=== PATIENT | male | born 1955 | race African-American/Black ===

== ENCOUNTER 2016-11-28 06:45 | Emergency (ER) | payer OTHER, MEDICAID ==
[~2016-11-28] VITALS: Ht 175.3 cm; Wt 68.9 kg
[~2016-11-28 06:45] MED LIST: ACETTAB85; ASPI81CH43; CAPT12.533; CARI350T21; Cilostazol PO; LEVO-28 PO; METO25TA62; NOR10T PO; PRAVASTATIN
[2016-11-28 07:56] LABS: Basophils # (auto) 0 uL; Basophils % (auto) 0.5 % (0.0-2.0); Eosinophils # (auto) 0.2 uL; Eosinophils % (auto) 2.8 % (0.0-7.0); Hematocrit 38.5 % (41.0-53.0); Hemoglobin 13.1 g/dL (13.5-17.5); Lymphocytes # (auto) 1.9 uL; Lymphocytes % (auto) 23.3 % (10.0-50.0); Mean Corpuscular Hemoglobin 29.6 pg (28.0-32.0); Mean Platelet Volume 8.9 fL (7.4-10.4); Monocytes # (auto) 0.7 uL; Monocytes % (auto) 8.2 % (0.0-12.0); Neutrophils # (auto) 5.4 uL; Neutrophils % (auto) 65.2 % (37.0-80.0); Platelet Count (auto) 234 10^3/uL (140-450); Red Cell Distribution Width 15.5 % (11.6-16.0); SUSPECT VIEW TRANSMISSION; White Blood Cell 8.3 10^3/uL (4.4-10.8)
[2016-11-28 08:14] LABS: Albumin 3.7 g/dL (3.4-5.0); Alkaline Phosphatase 89 U/L (45-117); Anion Gap 11 (5-15); Aspartate Aminotransferase 14 U/L (15-37); BUN/Creatinine Ratio 11.6; Bilirubin, Total 0.4 mg/dL (0.2-1.0); Blood Urea Nitrogen 11 mg/dL (7-18); Calcium 9.2 mg/dL (8.5-10.1); Carbon Dioxide 23 mmol/L (21-32); Chloride 109 mmol/L (98-107); GFR African American 103 mL/min; GFR Non-African American 85 mL/min; Glucose 106 mg/dL (74-106); Magnesium 1.9 mg/dL (1.6-2.6); Potassium 3.8 mmol/L (3.5-5.1); Sodium 143 mmol/L (136-145); Total Protein 7.6 g/dL (6.4-8.2)
[2016-11-28 08:20] LABS: Temperature: 21.6 C (20.0-25.0)
[2016-11-28 08:29] LABS: INR 1.08 (0.9-1.15); Partial Thromboplastin Time 28.2 sec (22.64-33.71); Prothrombin Time 11.1 sec (9.37-12.3)
[2016-11-28] MEDS ORDERED: cloNIDine HCL 0.1 MG TAB PO ONE (09:00)
[2016-11-28] MEDS ORDERED: METOPROLOL SUCCINATE XL 50 MG TAB PO ONE (09:00)
[2016-11-28 09:50] VITALS: BP 129/92
== END 2016-11-28 10:13 | disposition home or self-care (01) ==
LOC: ER 07:04
DX: I25.810 Atherosclerosis of coronary artery bypass graft(s) without angina pectoris (principal); I11.0 Hypertensive heart disease with heart failure; I50.9 Heart failure, unspecified; E78.5 Hyperlipidemia, unspecified; I48.91 Unspecified atrial fibrillation; Z89.611 Acquired absence of right leg above knee; Z86.73 Personal history of transient ischemic attack (TIA), and cerebral infarction without residual deficits; I25.2 Old myocardial infarction; F17.210 Nicotine dependence, cigarettes, uncomplicated; Z88.0 Allergy status to penicillin; Z79.82 Long term (current) use of aspirin; Z79.899 Other long term (current) drug therapy
CPT/HCPCS: 36415; 71010; 80053; 83735; 83880; 84484; 85025; 85610; 85730; 93005

== ENCOUNTER 2021-01-29 09:38 | Emergency (ER) | payer OTHER, MEDICAID ==
[~2021-01-29] VITALS: Ht 157.5 cm; Wt 68.0 kg
[~2021-01-29 09:38] MED LIST changes: +ACET-1603; -ACETTAB85; +CAPT12.52; -CAPT12.533; -CARI350T21; +CARI350T22; -METO25TA62; +METO25TA93
[2021-01-29 10:30] LABS: Basophils # (auto) 0 10 ^3/uL (0-0.2); Basophils % (auto) 0.6 % (0.0-2.0); Eosinophils # (auto) 0 10 ^3/uL (0-0.8); Eosinophils % (auto) 0.3 % (0.0-7.0); Hematocrit 43.8 % (41.0-53.0); Hemoglobin 14.8 g/dL (13.5-17.5); Lymphocytes % (auto) 16.4 % (10.0-50.0); Mean Corpuscular Hemoglobin 29.9 pg (28.0-32.0); Mean Corpuscular Hgb Conc. 33.8 g/dL (32.0-36.0); Mean Corpuscular Volume 88.5 fL (80.0-100.0); Monocytes # (auto) 0.3 10 ^3/uL (0-1.3); Monocytes % (auto) 5.8 % (0.0-12.0); Neutrophils # (auto) 4.6 10 ^3/uL (1.6-8.6); Neutrophils % (auto) 76.9 % (37.0-80.0); Nucleated Red Blood Cells % 0.1 %; Platelet Count (auto) 202 10^3/uL (140-450); Red Blood Cells 4.95 10^6/uL (4.5-5.90); Red Cell Distribution Width 15.3 % (11.8-14.3)
[2021-01-29 10:48] LABS: Albumin 3.5 g/dL (3.4-5.0); Amylase 43 U/L (25-115); Anion Gap 13 (5-15); Blood Urea Nitrogen 11 mg/dL (7-18); Carbon Dioxide 20 mmol/L (21-32); Chloride 108 mmol/L (98-107); Glucose 116 mg/dL (74-106); Lipase 35 U/L (73-393); Potassium 3.8 mmol/L (3.5-5.1); Sodium 141 mmol/L (136-145)
[2021-01-29 10:54] LABS: Alanine Aminotransferase 28 U/L (16-61); Alkaline Phosphatase 88 U/L (45-117); Aspartate Aminotransferase 49 U/L (15-37); BUN/Creatinine Ratio 10.4; Bilirubin, Total 0.4 mg/dL (0.2-1.0); GFR African American 90 mL/min; GFR Non-African American 74 mL/min; Total Protein 7.4 g/dL (6.4-8.2)
[2021-01-29] MEDS ORDERED: cloNIDine HCL 0.1 MG TAB PO ONE (12:00)
[2021-01-29 12:22] VITALS: BP 178/98
== END 2021-01-29 12:36 | disposition home or self-care (01) ==
LOC: ER 09:38 → EDBD 09:38 → ER 12:36
DX: R10.84 Generalized abdominal pain (principal); I16.0 Hypertensive urgency; I13.0 Hypertensive heart and chronic kidney disease with heart failure and stage 1 through stage 4 chronic kidney disease, or unspecified chronic kidney disease; N18.9 Chronic kidney disease, unspecified; I50.9 Heart failure, unspecified; E78.5 Hyperlipidemia, unspecified; I25.2 Old myocardial infarction; Z86.73 Personal history of transient ischemic attack (TIA), and cerebral infarction without residual deficits; Z87.891 Personal history of nicotine dependence; Z88.0 Allergy status to penicillin
CPT/HCPCS: 36415; 71045; 74176; 80053; 82150; 83690; 84484; 85025; 93005

== ENCOUNTER 2021-10-22 06:32 | Inpatient (IN) | payer OTHER, MEDICAID ==
[~2021-10-22] VITALS: Ht 243.8 cm; Wt 55.3 kg
[2021-10-22] MEDS ORDERED: ACETAMINOPHEN 325 MG TAB PO ONE (07:00)
[2021-10-22] MEDS ORDERED: cefTRIAXone 1GM/50ML D5W 50 ML IV ONE (08:00)
[2021-10-22] MEDS ORDERED: AZITHROMYCIN 500MG/ 250ML 250 ML IV ONE (08:00)
[2021-10-22 10:21] LABS: Basophils # (auto) 0 10 ^3/uL (0-0.2); Basophils % (auto) 0.4 % (0.0-2.0); Eosinophils # (auto) 0 10 ^3/uL (0-0.8); Hematocrit 40.2 % (41.0-53.0); Hemoglobin 13.2 g/dL (13.5-17.5); Lymphocytes # (auto) 0.6 10 ^3/uL (0.4-5.4); Lymphocytes % (auto) 6.8 % (10.0-50.0); Mean Corpuscular Hgb Conc. 32.8 g/dL (32.0-36.0); Mean Corpuscular Volume 88.6 fL (80.0-100.0); Monocytes # (auto) 0.5 10 ^3/uL (0-1.3); Monocytes % (auto) 5.5 % (0.0-12.0); Neutrophils # (auto) 8.2 10 ^3/uL (1.6-8.6); Neutrophils % (auto) 87.3 % (37.0-80.0); Nucleated Red Blood Cells % 0.1 %; Red Blood Cells 4.54 10^6/uL (4.5-5.90); Red Cell Distribution Width 17.8 % (11.8-14.3); White Blood Cell 9.4 10^3/uL (4.4-10.8)
[2021-10-22 10:43] LABS: Potassium 3.8 mmol/L (3.5-5.1)
[2021-10-22 10:49] LABS: INR 1.27 (0.9-1.15); Partial Thromboplastin Time 34.7 sec (23.6-33.0)
[2021-10-22 10:54] LABS: Albumin 3.1 g/dL (3.4-5.0); BUN/Creatinine Ratio 11.6; Bilirubin, Total 0.6 mg/dL (0.2-1.0); Calcium 8.4 mg/dL (8.5-10.1); Magnesium 2.7 mg/dL (1.6-2.6); Total Protein 6.6 g/dL (6.4-8.2)
[2021-10-22 14:12] LABS: Urine Amorphous Crystal FEW /hpf (None Seen); Urine Bacteria NONE SEEN /hpf (None Seen); Urine Blood 2+ /uL (Negative); Urine Specific Gravity 1.023 (1.001-1.035); Urine WBC 1 /hpf (0 - 3)
[2021-10-22] MEDS ORDERED: NITROGLYCERIN 0.4 MG SL TAB SL PRN (17:30)
[2021-10-22] MEDS ORDERED: BUMETANIDE 2.5mg/10ml (0.25 mg/ml) INJ IV ONE (17:30)
[2021-10-22] MEDS ORDERED: DexAMETHasone SOD PHOS 10MG/1ML VIAL INJ IV ONE (17:30)
[2021-10-22] MEDS ORDERED: MORPHINE SULFATE INJECTION 2 MG/ML SYRG IV PRN (17:30)
[2021-10-22] MEDS ORDERED: ISOSORBIDE MONONITRATE 20 MG TAB PO ONE (17:30)
[2021-10-22] MEDS ORDERED: ENOXAPARIN SOD 60 MG/0.6 ML SYRINGE SC ONE (17:45)
[2021-10-22 21:24] VITALS: BP 124/79
[2021-10-22 22:00] VITALS: BP 124/79
[2021-10-23] VITALS: BP 98/56
[2021-10-23 05:00] VITALS: BP 135/82
[2021-10-23] MEDS ORDERED: BUMETANIDE 2.5mg/10ml (0.25 mg/ml) INJ IV SCH (06:00)
[2021-10-23 07:45] LABS: INR 1.26 (0.9-1.15); Partial Thromboplastin Time 42.8 sec (23.6-33.0)
[2021-10-23 07:55] LABS: Basophils # (auto) 0 10 ^3/uL (0-0.2); Basophils % (auto) 0.2 % (0.0-2.0); Eosinophils # (auto) 0 10 ^3/uL (0-0.8); Hematocrit 46.4 % (41.0-53.0); Hemoglobin 15.4 g/dL (13.5-17.5); Lymphocytes # (auto) 0.5 10 ^3/uL (0.4-5.4); Lymphocytes % (auto) 5.5 % (10.0-50.0); Mean Corpuscular Hemoglobin 29.3 pg (28.0-32.0); Mean Corpuscular Hgb Conc. 33.3 g/dL (32.0-36.0); Mean Corpuscular Volume 88.2 fL (80.0-100.0); Monocytes # (auto) 0.2 10 ^3/uL (0-1.3); Monocytes % (auto) 2.1 % (0.0-12.0); Neutrophils # (auto) 8.4 10 ^3/uL (1.6-8.6); Neutrophils % (auto) 92.2 % (37.0-80.0); Nucleated Red Blood Cells % 0.1 %; Red Blood Cells 5.26 10^6/uL (4.5-5.90); Red Cell Distribution Width 17.5 % (11.8-14.3); White Blood Cell 9.1 10^3/uL (4.4-10.8)
[2021-10-23 08:00] VITALS: BP 141/93
[2021-10-23 08:08] LABS: Potassium 3.7 mmol/L (3.5-5.1)
[2021-10-23 08:26] LABS: Albumin 3.2 g/dL (3.4-5.0); Bilirubin, Total 0.8 mg/dL (0.2-1.0); Calcium 8.5 mg/dL (8.5-10.1); Magnesium 1.9 mg/dL (1.6-2.6); Total Protein 7.2 g/dL (6.4-8.2); Uric Acid 2.7 mg/dL (3.5-7.2)
[2021-10-23] MEDS: ISOSORBIDE MONONITRATE 20 MG TAB PO SCH ×2 (08:55→22:00)
[2021-10-23 12:34] VITALS: BP 110/79
[2021-10-23] MEDS: SODIUM CHLORIDE 0.9% 1,000 ML IV SCH (12:45)
[2021-10-23 15:10] LABS: Hepatitis B Surface Antibody Negative (Negative)
[2021-10-23] MEDS ORDERED: HYDROcodone-ACET 10/325MG TAB PO PRN (15:30)
[2021-10-23 15:49] LABS: Hepatitis A Total Antibody Negative (Negative)
[2021-10-23 16:00] VITALS: BP 140/93
[2021-10-23] MEDS ORDERED: MORPHINE SULFATE 4 MG/ML SYR/VIAL IV PRN (16:15)
[2021-10-23] MEDS ORDERED: ENOXAPARIN SOD 60 MG/0.6 ML SYRINGE SC SCH (18:00)
[2021-10-23 19:37] LABS: CRP High Sensitivity 4.98 mg/dL (< 0.3)
[2021-10-23] MEDS: ALBUTEROL SULF HFA 90MCG INH 200DOSE IN PRN (20:40)
[2021-10-23 20:59] LABS: Hepatitis A Ab IgM Negative
[2021-10-23 21:00] LABS: Hepatitis B Core IgM Negative
[2021-10-23 21:01] LABS: Hepatitis C Antibody Negative (Negative)
[2021-10-23] MEDS: FAMOTIDINE (10MG/ML) 2ML VL IV SCH (23:19)
[2021-10-23] MEDS: HEPARIN SODIUM (PORCINE) 5000 UNITS/ML 1ML VIAL SC SCH (23:22)
[2021-10-24] VITALS: BP 98/56
[2021-10-24] MEDS: SODIUM CHLORIDE 0.9% 1,000 ML IV SCH ×2 (02:05→15:46)
[2021-10-24] MEDS: ALBUTEROL SULF HFA 90MCG INH 200DOSE IN PRN ×2 (05:50→20:02)
[2021-10-24 08:00] VITALS: BP 151/86
[2021-10-24] MEDS: ISOSORBIDE MONONITRATE 20 MG TAB PO SCH ×2 (10:00→22:01)
[2021-10-24] MEDS: AZITHROMYCIN 500MG/ 250ML 250 ML IV SCH (10:05)
[2021-10-24] MEDS: METOPROLOL SUCCINATE XL 50 MG TAB PO SCH (10:05)
[2021-10-24] MEDS: ZINC SULFATE 220mg CAP or TAB PO SCH (10:05)
[2021-10-24] MEDS: ASPirin 81 mg TAB PO SCH (10:05)
[2021-10-24] MEDS: FAMOTIDINE (10MG/ML) 2ML VL IV SCH (10:06)
[2021-10-24] MEDS: ASCORBIC ACID 500 MG TAB PO SCH (10:06)
[2021-10-24] MEDS: DexAMETHasone SOD PHOS 10MG/1ML VIAL INJ IV SCH (10:06)
[2021-10-24] MEDS: HEPARIN SODIUM (PORCINE) 5000 UNITS/ML 1ML VIAL SC SCH ×2 (10:07→22:04)
[2021-10-24 13:00] VITALS: BP 121/85
[2021-10-24 13:50] LABS: Bilirubin, Direct 0.5 mg/dL (0-0.2); Bilirubin, Total 0.9 mg/dL (0.2-1.0); Total Protein 6.8 g/dL (6.4-8.2)
[2021-10-24 16:00] VITALS: BP 155/90
[2021-10-24] MEDS: Ensure Enlive Strawberry 8oz Bottle PO SCH (18:23)
[2021-10-24 21:00] VITALS: BP 141/70
[2021-10-25 00:14] VITALS: BP 141/78
[2021-10-25 06:08] LABS: Basophils # (auto) 0 10 ^3/uL (0-0.2); Basophils % (auto) 0.4 % (0.0-2.0); Eosinophils # (auto) 0 10 ^3/uL (0-0.8); Hematocrit 40.5 % (41.0-53.0); Hemoglobin 13.4 g/dL (13.5-17.5); Lymphocytes # (auto) 0.4 10 ^3/uL (0.4-5.4); Mean Corpuscular Hemoglobin 29.3 pg (28.0-32.0); Mean Corpuscular Hgb Conc. 33.2 g/dL (32.0-36.0); Mean Corpuscular Volume 88.3 fL (80.0-100.0); Monocytes # (auto) 0.3 10 ^3/uL (0-1.3); Monocytes % (auto) 6.1 % (0.0-12.0); Neutrophils # (auto) 4.8 10 ^3/uL (1.6-8.6); Neutrophils % (auto) 86.5 % (37.0-80.0); Red Blood Cells 4.58 10^6/uL (4.5-5.90); Red Cell Distribution Width 17.7 % (11.8-14.3); White Blood Cell 5.5 10^3/uL (4.4-10.8)
[2021-10-25 06:35] LABS: Albumin 2.7 g/dL (3.4-5.0); BUN/Creatinine Ratio 24.6; Calcium 8.5 mg/dL (8.5-10.1); Magnesium 2.2 mg/dL (1.6-2.6); Potassium 4.7 mmol/L (3.5-5.1)
[2021-10-25 06:38] LABS: Bilirubin, Total 0.8 mg/dL (0.2-1.0); Total Protein 5.9 g/dL (6.4-8.2)
[2021-10-25] MEDS: Ensure Enlive Strawberry 8oz Bottle PO SCH ×2 (08:17→17:56)
[2021-10-25 09:00] VITALS: BP 158/97
[2021-10-25] MEDS: AZITHROMYCIN 500MG/ 250ML 250 ML IV SCH (09:49)
[2021-10-25] MEDS: DexAMETHasone SOD PHOS 10MG/1ML VIAL INJ IV SCH (09:50)
[2021-10-25] MEDS: HEPARIN SODIUM (PORCINE) 5000 UNITS/ML 1ML VIAL SC SCH ×2 (09:50→22:06)
[2021-10-25] MEDS: ISOSORBIDE MONONITRATE 20 MG TAB PO SCH ×2 (09:51→22:06)
[2021-10-25] MEDS: METOPROLOL SUCCINATE XL 50 MG TAB PO SCH (09:52)
[2021-10-25] MEDS: ZINC SULFATE 220mg CAP or TAB PO SCH (09:52)
[2021-10-25] MEDS: ASPirin 81 mg TAB PO SCH (09:52)
[2021-10-25] MEDS: ASCORBIC ACID 500 MG TAB PO SCH (09:53)
[2021-10-25 13:00] VITALS: BP 139/69
[2021-10-25 17:00] VITALS: BP 139/87
[2021-10-25] MEDS: ALBUTEROL SULF HFA 90MCG INH 200DOSE IN PRN (21:43)
[2021-10-25 22:00] VITALS: BP 133/79
[2021-10-26 05:00] VITALS: BP 141/96
[2021-10-26] MEDS: ALBUTEROL SULF HFA 90MCG INH 200DOSE IN PRN ×2 (05:52→21:11)
[2021-10-26 07:40] LABS: Albumin 2.6 g/dL (3.4-5.0); Bilirubin, Direct 0.2 mg/dL (0-0.2); Bilirubin, Total 0.6 mg/dL (0.2-1.0); Total Protein 6.2 g/dL (6.4-8.2)
[2021-10-26 07:45] VITALS: BP 152/92
[2021-10-26] MEDS: Ensure Enlive Strawberry 8oz Bottle PO SCH ×2 (08:18→18:27)
[2021-10-26] MEDS: ZINC SULFATE 220mg CAP or TAB PO SCH (10:00)
[2021-10-26] MEDS: ISOSORBIDE MONONITRATE 20 MG TAB PO SCH ×3 (10:00→21:58)
[2021-10-26] MEDS: AZITHROMYCIN 500MG/ 250ML 250 ML IV SCH (10:07)
[2021-10-26] MEDS: DexAMETHasone SOD PHOS 10MG/1ML VIAL INJ IV SCH (10:08)
[2021-10-26] MEDS: METOPROLOL SUCCINATE XL 50 MG TAB PO SCH (10:08)
[2021-10-26] MEDS: ASCORBIC ACID 500 MG TAB PO SCH (10:08)
[2021-10-26] MEDS: ASPirin 81 mg TAB PO SCH (10:09)
[2021-10-26] MEDS: HEPARIN SODIUM (PORCINE) 5000 UNITS/ML 1ML VIAL SC SCH ×2 (10:10→21:58)
[2021-10-26 12:50] VITALS: BP 149/82
[2021-10-26] MEDS ORDERED: ISO20T PO (15:24)
[2021-10-26] MEDS ORDERED: ALBUAER3 IN (15:24)
[2021-10-26] MEDS ORDERED: METO-6 PO (15:24)
[2021-10-26 16:30] VITALS: BP 141/89
[2021-10-26 22:00] VITALS: BP 147/79
[2021-10-27 05:00] VITALS: BP 143/90
[2021-10-27] MEDS: Ensure Enlive Strawberry 8oz Bottle PO SCH ×2 (08:30→18:19)
[2021-10-27 09:00] VITALS: BP 168/91
[2021-10-27] MEDS: ISOSORBIDE MONONITRATE 20 MG TAB PO SCH ×2 (10:00→23:21)
[2021-10-27] MEDS: AZITHROMYCIN 500MG/ 250ML 250 ML IV SCH (10:47)
[2021-10-27] MEDS: DexAMETHasone SOD PHOS 10MG/1ML VIAL INJ IV SCH (10:47)
[2021-10-27] MEDS: ASPirin 81 mg TAB PO SCH (10:47)
[2021-10-27] MEDS: METOPROLOL SUCCINATE XL 50 MG TAB PO SCH (10:48)
[2021-10-27] MEDS: ASCORBIC ACID 500 MG TAB PO SCH (10:48)
[2021-10-27] MEDS: ZINC SULFATE 220mg CAP or TAB PO SCH (10:48)
[2021-10-27] MEDS: HEPARIN SODIUM (PORCINE) 5000 UNITS/ML 1ML VIAL SC SCH ×2 (10:49→23:20)
[2021-10-27 13:08] VITALS: BP 148/83
[2021-10-27 17:00] VITALS: BP 135/81
[2021-10-27] MEDS: ALBUTEROL SULF HFA 90MCG INH 200DOSE IN PRN (21:45)
[2021-10-27 22:00] VITALS: BP 165/97
[2021-10-28 05:00] VITALS: BP 145/93
[2021-10-28] MEDS: ALBUTEROL SULF HFA 90MCG INH 200DOSE IN PRN (06:02)
[2021-10-28] MEDS: Ensure Enlive Strawberry 8oz Bottle PO SCH ×2 (08:48→18:14)
[2021-10-28 09:00] VITALS: BP 140/46
[2021-10-28] MEDS: DexAMETHasone SOD PHOS 10MG/1ML VIAL INJ IV SCH (09:28)
[2021-10-28] MEDS: AZITHROMYCIN 500MG/ 250ML 250 ML IV SCH (09:28)
[2021-10-28] MEDS: ASCORBIC ACID 500 MG TAB PO SCH (09:39)
[2021-10-28] MEDS: ZINC SULFATE 220mg CAP or TAB PO SCH (09:39)
[2021-10-28] MEDS: ASPirin 81 mg TAB PO SCH (09:39)
[2021-10-28] MEDS: ISOSORBIDE MONONITRATE 20 MG TAB PO SCH ×2 (10:42→22:40)
[2021-10-28] MEDS: METOPROLOL SUCCINATE XL 50 MG TAB PO SCH (10:42)
[2021-10-28] MEDS: HEPARIN SODIUM (PORCINE) 5000 UNITS/ML 1ML VIAL SC SCH ×2 (11:02→22:42)
[2021-10-28 13:00] VITALS: BP 143/79
[2021-10-28 17:00] VITALS: BP 130/88
[2021-10-28 22:00] VITALS: BP 108/60
[2021-10-29 05:00] VITALS: BP 144/81
[2021-10-29] MEDS: ALBUTEROL SULF HFA 90MCG INH 200DOSE IN PRN (07:23)
[2021-10-29 09:44] VITALS: BP 154/83
[2021-10-29] MEDS: DexAMETHasone SOD PHOS 10MG/1ML VIAL INJ IV SCH (10:49)
[2021-10-29] MEDS: Ensure Enlive Strawberry 8oz Bottle PO SCH (10:49)
[2021-10-29] MEDS: AZITHROMYCIN 500MG/ 250ML 250 ML IV SCH (10:49)
[2021-10-29] MEDS: ASPirin 81 mg TAB PO SCH (10:50)
[2021-10-29] MEDS: ASCORBIC ACID 500 MG TAB PO SCH (10:50)
[2021-10-29] MEDS: METOPROLOL SUCCINATE XL 50 MG TAB PO SCH (10:50)
[2021-10-29] MEDS: ISOSORBIDE MONONITRATE 20 MG TAB PO SCH (10:50)
[2021-10-29] MEDS: ZINC SULFATE 220mg CAP or TAB PO SCH (10:51)
[2021-10-29] MEDS: HEPARIN SODIUM (PORCINE) 5000 UNITS/ML 1ML VIAL SC SCH (10:52)
[2021-10-29 12:30] VITALS: BP 149/83
[2021-10-29 16:16] VITALS: BP 140/80
== END 2021-10-29 17:30 | disposition home health service (06) | DRG 177 ==
LOC: ER 06:32 → EDBD 06:32 → TELE 17:32 → TELE-WESTW 21:20
PROVIDERS: ADMIT Hospitalist; ATTEND Internal Medicine
PROC: 4B02XTZ Measurement of Cardiac Defibrillator, External Approach (ICD-10-PCS; principal; 2021-10-22)
DX: U07.1 COVID-19 (principal); J12.82 Pneumonia due to coronavirus disease 2019; J96.01 Acute respiratory failure with hypoxia; G93.41 Metabolic encephalopathy; I50.43 Acute on chronic combined systolic (congestive) and diastolic (congestive) heart failure; N17.9 Acute kidney failure, unspecified; I13.0 Hypertensive heart and chronic kidney disease with heart failure and stage 1 through stage 4 chronic kidney disease, or unspecified chronic kidney disease; J44.0 Chronic obstructive pulmonary disease with (acute) lower respiratory infection; J98.11 Atelectasis; I24.8 Other forms of acute ischemic heart disease; I69.351 Hemiplegia and hemiparesis following cerebral infarction affecting right dominant side; E78.5 Hyperlipidemia, unspecified; I25.10 Atherosclerotic heart disease of native coronary artery without angina pectoris; I25.5 Ischemic cardiomyopathy; I73.9 Peripheral vascular disease, unspecified; D89.839 Cytokine release syndrome, grade unspecified; R79.89 Other specified abnormal findings of blood chemistry; I48.91 Unspecified atrial fibrillation; M85.80 Other specified disorders of bone density and structure, unspecified site; N18.30 Chronic kidney disease, stage 3 unspecified; Z82.49 Family history of ischemic heart disease and other diseases of the circulatory system; Z89.512 Acquired absence of left leg below knee; I25.2 Old myocardial infarction; Z87.891 Personal history of nicotine dependence; Z89.611 Acquired absence of right leg above knee; Z91.19 Patient's noncompliance with other medical treatment and regimen; Z95.1 Presence of aortocoronary bypass graft; Z95.810 Presence of automatic (implantable) cardiac defibrillator
CPT/HCPCS: 36415; 36600; 71045; 76705; 80053; 80074; 80076; 81001; 82140; 82306; 82805; 83605; 83735; 83880; 84100; 84443; 84484; 84550; 85025; 85379; 85610; 85730; 86141; 86704; 86706; 86708; 86803; 87040; 87340; 87426; 93005; 93306; 93970; 94640; 96365; 96367; 96372; 96375; 97110; 97530; G0378; J0696; J1100; J3490